=== PATIENT | female | born 1990 | race Caucasian/White ===

== ENCOUNTER → 2018-05-23 | Outpatient (CLI) | payer BC ==
--- NOTE | 2018-05-23 16:12 | RADIOLOGY IMAGING REPORT ---
FACILITY: [facility] PATIENT NAME: Emili Crepso : 1990 MR: [id number] V: [id number] EXAM DATE: ORDERING PHYSICIAN: RADHA BARAJAS TECHNOLOGIST: Location: [facility] [place] Patient: Emili Crespo : 1990 Visit/Account:[id number] Date of Sevice: 05/23/2018 CHEST PA LAT Additional pertinent History: SOB COMPARISON STUDIES: None FINDINGS: Support lines and catheters: None Lungs and Pleura: Lung francis well expanded with no infiltrates or consolidations. No parenchymal ma ss lesions are seen. There are no effusions Heart and vasculature: Negative. [place] and Mediastinum: Negative. Bones and Chest wall: Negative. Upper Abdomen: Negative. IMPRESSION: 1. Negative chest Report Dictated By: Jose Guadalupe Bailey MD at 05/23/2018 4:08 PM Report E-Signed By: Jose Guadalupe Bailey MD at 05/23/2018 4:09 PM WSN:[email or web address]
== END ==
LOC: RAD 15:31
PROVIDERS: ATTEND Nurse Practitioner Family
DX: R06.02 Shortness of breath (principal)
CPT/HCPCS: 71046